=== PATIENT | male | born 1970 | race African-American/Black ===

== ENCOUNTER 2018-01-20 12:09 | Day surgery (SDC) | payer BC ==
[2018-01-20] MEDS ORDERED: DIPHENHYDRAMINE 50 MG INJ (14:48)
[2018-01-20] MEDS ORDERED: FENTAnyl 50 MCG/ML VIAL (15:09)
[2018-01-20] MEDS ORDERED: MIDAZOLAM 1 MG/ML 2 ML INJ ×2 (15:09)
== END 2018-01-20 17:43 | disposition home or self-care (01) ==
LOC: GIL 12:09
DX: Z12.11 Encounter for screening for malignant neoplasm of colon (principal); K64.0 First degree hemorrhoids
CPT/HCPCS: 45378